=== PATIENT | female | born 1970 | race Caucasian/White ===

== ENCOUNTER 2016-09-14 02:05 | Emergency (ER) | payer BC ==
[2016-09-14 02:13] VITALS: BP 128/84
[2016-09-14] MEDS ORDERED: Alum Hydrox/Mag Hydrox/Simeth 30 ML, Lidocaine 2% 15 ML PO ONE ×2 (02:13)
--- NOTE | 2016-09-14 02:20 | EDM.PDOC ---
<Uma Pryor - Last Filed: 09/14/16 04:40> ED HPI GI/ABDOMINAL - General Chief Complaint: Abdominal Pain Stated Complaint: abdominal pain Time Seen by Provider: 09/14/16 02:10 Source of Information: Reports: Patient, Family History Limitations: Reports: No limitations - History of Present Illness INITIAL COMMENTS - FREE TEXT/NARRATIVE: History and physical: History of present illness: [Patient comes to the emergency room complaining of epigastric abdominal pain. She was first evaluated for nausea vomiting and diarrhea on 09/12 in the clinic. Her symptoms improved with IV fluids and IV Zofran. She was discharged home on Wednesday afternoon and felt somewhat better that evening. Patient went to bed about 10:30 last evening and woke up a couple of hours later with a feeling of fullness and pressure in her epigastric area. She denies chest pain shortness of breath and difficulty breathing. Her diarrhea has slowed down considerably, but continues to be very watery. No fever or chills. Last episode of vomiting was on Wednesday afternoon. She has been taking Zofran several times per day because her nausea continues. CBC, CMP completed on 09/12 were unremarkable. C. Diff test was negative. She was diagnosed with UTI earlier last week, but had only taken 1 dose of medication when she was evaluated in the clinic on Wednesday. Review of Systems: As per history of present illness and below otherwise all systems reviewed and negative. Past medical history: As per history of present illness and as reviewed below otherwise noncontributory. Surgical history: As per history of present illness and is reviewed below other [place] noncontributory. Social history: No reported history of drug or alcohol abuse. Family history: As per history of present illness and is reviewed below otherwise noncontributory. Physical exam: HEENT: Atraumatic, normocephalic. mucous membranes mildly dry. neck supple, nontender, trachea midline. Lungs: Clear to auscultation, breath sounds equal bilaterally. Heart: S1-S2, regular rate and rhythm. Abdomen: Abdomen is soft, and nondistended. She is tender with palpation over epigastrum. Mild generalized tenderness throughout. Negative for costovertebral tenderness. Pelvis: Stable, nontender. Genitourinary: Deferred. Rectal: Deferred. Extremities: Is ambulatory. Extremies are atraumatic. Neuro: Awake, alert, oriented. Motor and sensory unremarkable throughout. Exam nonfocal. Therapeutics: [IV NS x 2 liters, phenergan 25mg IV, GI cocktail] Impression: [epigastric pain] Plan: [Epigastric pain improved following GI cocktail, but now has the sensation that she needs to belch, but is unable to do so. She requests a stronger medication for nausea. Will keep patient for extended ER. Suspect current symptoms are related to gastroenteritis. This patient will be turned over to the care of IN[facility] Vaughn at 0445 this morning. ] Definitive disposition and diagnosis is appropriate pending reevaluation and review of above. - Related Data Allergies/ADRs: Allergies Allergy/AdvReac Type Severity Reaction Status Date / Time Sulfa (Sulfonamide Allergy Cannot Verified 09/14/16 02:06 Antibiotics) Remember Home Meds: Home Meds Calcium Carb & Citrate/Vit D3 [Calcium + D3 ER Tablet] 1 each PO DAILY 05/08/14 [History] Ibuprofen 800 mg PO Q6H PRN 05/08/14 [History] Loratadine [Claritin] 10 mg PO DAILY PRN 05/08/14 [History] Metoprolol Succinate [Toprol XL] 12.5 mg PO DAILY 05/08/14 [History] Multivitamin [Multi Vitamin Daily] 1 each PO DAILY 05/08/14 [History] Venlafaxine HCl [Venlafaxine ER] 225 mg PO DAILY 05/08/14 [History] buPROPion HCl [Wellbutrin Xl] 150 mg PO DAILY 05/08/14 [History] Pantoprazole Sodium [Protonix] 20 mg PO DAILY 07/06/15 [History] Ondansetron HCl [Zofran] 4 mg PO Q6H PRN 09/14/16 [History] Past Medical History Cardiovascular History: Reports: Hypertension Gastrointestinal History: Reports: GERD Psychiatric History: Reports: Anxiety, Depression - Past Surgical History HEENT Surgical History: Reports: LASIK GI Surgical History: Reports: Cholecystectomy, Other (see below) Other GI Surgeries/Procedures: LAP BAND REMOVAL, RECTOCELE REPAIR Female Surgical History: Reports: Breast reduction, section, Hysterectomy Social & Family History - Tobacco Use Smoking Status *Q: Never Smoker - Recreational Drug Use Recreational Drug Use: No ED ROS GENERAL - Review of Systems Review Of Systems: ROS reveals no pertinent complaints other than HPI. ED EXAM, GI/ABD - Physical Exam Exam: See Below Course - Vital Signs Last Recorded V/S: Last Vital Signs Temp 98.7 F 09/14/16 02:07 Pulse 78 09/14/16 02:07 Resp 18 09/14/16 02:07 BP 128/84 09/14/16 02:07 Pulse Ox 98 09/14/16 02:07 - Orders/Labs/Meds Orders: Active Orders 24 hr Category Date Time Status Ondansetron [Zofran] Med 09/14/16 04:39 Active 4 mg IVPUSH ONETIME PRN Sodium Chloride 0.9% [Normal Saline] 1,000 ml Med 09/14/16 04:00 Active IV ASDIRECTED Medication Orders Sodium Chloride (Normal Saline) 1,000 mls @ 250 mls/hr IV ASDIRECTED MAIRA Last Admin: 09/14/16 04:25 Dose: 250 mls/hr Ondansetron HCl (Zofran) 4 mg IVPUSH ONETIME PRN PRN Reason: Nausea/Vomiting Meds: Medications Generic Name Dose Route Start Last Admin Trade Name Freq PRN Reason Stop Dose Admin Sodium Chloride 1,000 mls @ 250 mls/hr 09/14/16 04:00 09/14/16 04:25 Normal Saline IV 250 mls/hr ASDIRECTED MAIRA Administration Ondansetron HCl 4 mg 09/14/16 04:39 Zofran IVPUSH ONETIME PRN Nausea/Vomiting Discontinued Medications Generic Name Dose Route Start Last Admin Trade Name Freq PRN Reason Stop Dose Admin Al Hydroxide/Mg Hydroxide 30 0 ml 09/14/16 02:13 09/14/16 02:20 ml/ Lidocaine HCl 15 ml PO 09/14/16 02:14 15 ml STAT ONE Administration Promethazine HCl 25 mg/ Sodium 51 mls @ 100 mls/hr 09/14/16 02:40 09/14/16 02 :47 Chloride IV 09/14/16 03:10 100 mls/hr NOW STA Administration Sodium Chloride 1,000 mls @ 999 mls/hr 09/14/16 02:40 09/14/16 02:47 Normal Saline IV 09/14/16 03:40 999 mls/hr STAT ONE Administration Pantoprazole Sodium 80 mg 09/14/16 02:41 09/14/16 02:47 Protonix Iv IVPUSH 09/14/16 02:42 80 mg .BOLUS ONE Administration Departure - Departure Disposition: Home, Self-Care 01 Clinical Impression: Gastroenteritis UTI (urinary tract infection) Qualifiers: Urinary tract infection type: acute cystitis Hematuria presence: without hematuria Qualified Code(s): N30.00 - Acute cystitis without hematuria Instructions: Viral Gastroenteritis, Adult, Lexq-ps-Eqdc Referrals: Socorro Levine PA [Primary Care Provider] - Forms: ED Department Discharge Additional Instructions: Zofran 4 mg every 4 hours as needed for nausea Soft foods as tolerated Will call with results of stool culture when back. Follow up if symptoms do not resolve <Jammie Moura - Last Filed: 09/14/16 09:03> Departure - Departure Time of Disposition: 09:01 Condition: good - Problem List & Annotations (1) Gastroenteritis SNOMED Code(s): 67053978 Code(s): K52.9 - NONINFECTIVE GASTROENTERITIS AND COLITIS, UNSPECIFIED Status: Acute Priority: High Current Visit: Yes (2) UTI (urinary tract infection) SNOMED Code(s): 57411008 Code(s): N39.0 - URINARY TRACT INFECTION, SITE NOT SPECIFIED Status: Acute Priority: Medium Current Visit: Yes Qualifiers: Urinary tract infection type: acute cystitis Hematuria presence: without hematuria Qualified Code(s): N30.00 - Acute cystitis without hematuria - Problem List Review Problem List Initiated/Reviewed/Updated: Yes
[2016-09-14] MEDS ORDERED: Promethazine 25 MG in Sodium Chloride 0.9% 50 ML IV STA (02:40)
[2016-09-14] MEDS ORDERED: Sodium Chloride 0.9% 1,000 ML IV ONE (02:40)
[2016-09-14] MEDS ORDERED: Pantoprazole 40 MG Vial IVPUSH ONE (02:41)
[2016-09-14] MEDS ORDERED: Sodium Chloride 0.9% 1,000 ML IV SCH (04:00)
[2016-09-14] MEDS ORDERED: Ondansetron 4 MG/2 ML SDV IVPUSH PRN (04:39)
== END 2016-09-14 09:15 | disposition home or self-care (01) ==
LOC: CC.ED 02:05
DX: K52.9 Noninfective gastroenteritis and colitis, unspecified (principal); N30.00 Acute cystitis without hematuria; I10 Essential (primary) hypertension; K21.9 Gastro-esophageal reflux disease without esophagitis; F41.9 Anxiety disorder, unspecified; F32.9 Major depressive disorder, single episode, unspecified; Z88.2 Allergy status to sulfonamides; Z79.899 Other long term (current) drug therapy
CPT/HCPCS: 96361; 96365; 96375; 99284; A9270; C9113; J2550; J7030; J7050

== ENCOUNTER → 2019-11-30 | Day surgery (SDC) | payer OTHER ==
[~2019-11-30] MED LIST: Lidocaine 1% 20 ML MDV ONE
[2019-11-30 13:45] VITALS: BP 114/70; PULSE 75
--- NOTE | 2019-12-01 10:04 | OR ---
DATE OF OPERATION: 11/30/2019 PREOPERATIVE DIAGNOSIS: LEFT SAPHENOFEMORAL INSUFFICIENCY WITH PAINFUL VARICOSITIES. POSTOPERATIVE DIAGNOSIS: LEFT SAPHENOFEMORAL INSUFFICIENCY WITH PAINFUL VARICOSITIES. SURGEON: Ray Stevens MD PROCEDURE: DARREL OF LEFT GSV. ANESTHESIA: Local with tumescent. COMPLICATIONS: None. SPECIMEN: None. FINDINGS: Successful DARREL of left GSV. INDICATIONS: Patient has documented saphenofemoral insufficiency in her GSV on the left side. She has painful varicosities that are symptomatic. We elected to proceed with ablation. DESCRIPTION OF PROCEDURE: The patient was brought to the operating room suite and insufficient saphenous vein mapped via ultrasound and diagrammed on the overlying skin including access site. The patient was placed supine on the hospital bed. The entire limb was prepped and draped in sterile fashion. The patient was placed in reverse Trendelenburg position. 1% lidocaine was used for local anesthesia at the access site done by the distal left calf. The vein was accessed with a needle under ultrasound guidance using the Seldinger technique. A guidewire was inserted through the needle, the needle removed, and a small skin incision was made with 11 blade scalpel. A 6-Armenian sheath was placed over the guidewire and held in place via skin tension. The guidewire was removed. The sheath was flushed and a radiofrequency probe was inserted through the sheath and positioned up into the upper thigh. Unfortunately, patient has a very difficult branch of the GSV where a varicosity comes in. We were unable to get up and around this to get to continue through the GSV. We elected to stop there and do our first ablation. The probe was about 15 cm from the junction. We anesthetized with tumescent, and under ultrasound guidance, documented a nice halo effect around the entire vein from the calf to that spot. The patient was placed back in Trendelenburg position to exsanguinate superficial system, and once again under direct external compression, radiofrequency energy was applied to the heating element. The vein was ablated heating a 7 cm segment and indexing the catheter forward 6 cm until treatment was complete. Device temperature was maintained at 120 degrees Celsius with an initial power level of 40 dropping to below 20 for each treatment. That catheter and sheath were withdrawn. We had to re-access the upper portion of the GSV through this above where the patient had this difficult junction. We were able to do that easily using same Seldinger technique as prior, and the catheter was inserted through the sheath and advanced to the saphenofemoral junction. Under ultrasound guidance, we were able to document the catheter present approximately 2.1 cm from the junction. Once again, tumescent was infiltrated using ultrasound guidance, achieving a nice halo effect around the vein. The patient was placed back in Trendelenburg position to exsanguinate superficial system again, and once again, once probe position was verified via ultrasound and with direct external compression along the heating element, radiofrequency energy was applied. The vein was segmentally ablated, heating a 7 cm segment and indexing the catheter forward 6.5 cm until treatment length was complete. Device temperature again maintained at 120 degrees Celsius with an initial power level of 40 [place] dropping to below 20 for each treatment. Two separate radiofrequency times are reported and a total of 500 mL of tumescent anesthesia was used. The distal greater saphenous vein was treated with 5 radiofrequency cycles and a total of 1 minute and 40 seconds. A total of 400 mL of a tumescent was used. The upper GSV was with 1 minute and 20 seconds with 4 radiofrequency cycles and a total of 150 mL of tumescent used. Ultrasound confirmed successful treatment of entire length of the greater saphenous vein. A compression wrap was placed from the level of the foot to the thigh. There were no complications, and the patient was taken to recovery room in stable condition. CHARLIE/BERTA /[id number]
== END ==
LOC: CC.SDS 11:02
PROVIDERS: ATTEND Family Medicine
DX: I87.2 Venous insufficiency (chronic) (peripheral) (principal); I83.812 Varicose veins of left lower extremity with pain; F41.9 Anxiety disorder, unspecified; F32.9 Major depressive disorder, single episode, unspecified; K21.9 Gastro-esophageal reflux disease without esophagitis; E78.5 Hyperlipidemia, unspecified; I10 Essential (primary) hypertension; E66.9 Obesity, unspecified; Z88.2 Allergy status to sulfonamides; Z79.899 Other long term (current) drug therapy; Z68.41 Body mass index [BMI] 40.0-44.9, adult
CPT/HCPCS: 36475; A4216

== ENCOUNTER → 2019-12-05 | Day surgery (SDC) | payer OTHER ==
[~2019-12-05] MED LIST changes: +Lidocaine 1% with EPINEPHrine 1:100,000 20 ML MDV ONE
[2019-12-05 13:44] VITALS: BP 108/67
[2019-12-05 14:01] VITALS: PULSE 78
== END ==
LOC: CC.SDS 11:01
PROVIDERS: ATTEND Family Medicine
DX: I87.2 Venous insufficiency (chronic) (peripheral) (principal); I83.811 Varicose veins of right lower extremity with pain; F41.9 Anxiety disorder, unspecified; F32.9 Major depressive disorder, single episode, unspecified; K21.9 Gastro-esophageal reflux disease without esophagitis; E78.5 Hyperlipidemia, unspecified; I10 Essential (primary) hypertension; Z88.2 Allergy status to sulfonamides; E66.9 Obesity, unspecified; Z68.41 Body mass index [BMI] 40.0-44.9, adult; Z79.899 Other long term (current) drug therapy
CPT/HCPCS: 36475; A4216

== ENCOUNTER → 2022-05-28 | Day surgery (SDC) | payer OTHER ==
[~2022-05-28] MED LIST changes: +Lactated Ringers 1,000 ML IV SCH; -Lidocaine 1% 20 ML MDV ONE; -Lidocaine 1% with EPINEPHrine 1:100,000 20 ML MDV ONE; +Propofol 200 MG/20 ML SDV ONE; +ePHEDrine 50 MG/ML SDV ONE; +fentaNYL 50 MCG/ML SDV ONE
[2022-05-28 11:30] VITALS: BP 101/55; PULSE 67
== END ==
LOC: CC.SDS 07:54
PROVIDERS: ATTEND Surgery
DX: R19.5 Other fecal abnormalities (principal); K59.09 Other constipation; I10 Essential (primary) hypertension; F41.9 Anxiety disorder, unspecified; F32.A Depression, unspecified; K21.9 Gastro-esophageal reflux disease without esophagitis; E66.9 Obesity, unspecified; G47.30 Sleep apnea, unspecified; Z88.2 Allergy status to sulfonamides; Z79.899 Other long term (current) drug therapy; Z98.890 Other specified postprocedural states; Z90.710 Acquired absence of both cervix and uterus; Z68.41 Body mass index [BMI] 40.0-44.9, adult
CPT/HCPCS: 00811; J2704; J3010; J7120